=== PATIENT | male | born 1995 | race Two or more races ===

== ENCOUNTER 2025-04-09 00:04 | Emergency (ER) | payer BC ==
[~2025-04-09] VITALS: Ht 177.8 cm; Wt 77.1 kg
[2025-04-09] MEDS ORDERED: KEPPRA500 MG (00:29)
[2025-04-09] MEDS ORDERED: 0.9 % SODIUM CHLORIDE 1,000 ML IV STA (01:05)
[2025-04-09] MEDS ORDERED: ONDANSETRON HCL 2 MG/ML VIAL IV STA (01:06)
[2025-04-09] MEDS ORDERED: LORazepam 2 MG/ML VIAL IV PUSH STA (01:06)
[2025-04-09] MEDS ORDERED: FAMOtidine 10 MG/ML (4ML VIAL) IV PUSH STA (01:07)
[2025-04-09 01:20] LABS: BASO % 0.4 % (0.1-1.2); EOS # 0.18 (0.04-0.54); EOS % 1.1 % (0.7-7.0); LYMPH # 1.21 (1.18-3.74); LYMPH % 7.2 % (19.3-53.1); MEAN PLATELET VOLUME 10.50 fl (9.4-12.4); MONO # 0.88 (0.24-0.82); MONO % 5.2 % (4.7-12.5); NEUT # 14.35 (1.56-6.13); NEUT % 85.3 % (34.0-71.1); RED CELL DISTRIBUTION WIDTH 12.3 % (11.6-14.4)
[2025-04-09 01:58] LABS: INR 0.95
[2025-04-09 02:03] LABS: ALT/SGPT 78.0 U/L (12-78); AST/SGOT 51.0 U/L (15-37); BILIRUBIN TOTAL 0.3 mg/dL (0.3-1.2); BUN CREA RATIO 15.0 (7.0-25.0); CREATININE SERUM 1.1 mg/dL (0.70-1.30); GFR 80.3; GLOBULINA 4.3 G/DL (2.4-3.5); GLUCOSE FASTING 131.0 mg/dL (65-100); OSMOLALITY SERUM 286.0 MOSM/KG (275-295)
== END 2025-04-09 04:41 | disposition home or self-care (01) ==
LOC: ER 00:04
DX: G40.802 Other epilepsy, not intractable, without status epilepticus (principal); Z91.018 Allergy to other foods